=== PATIENT | male | born 1940 | race Caucasian/White ===

== ENCOUNTER → 2017-01-07 | Outpatient (CLI) | payer OTHER ==
[~2017-01-07] VITALS: Ht 180.3 cm; Wt 87.1 kg
[~2017-01-07] MED LIST: ALENDRONATE SOD70 MG PO; CHOLESTYRAMINE P4 GM PO; HALOPERIDOL 2 MG2 MG PO; LISINOPRIL20 MG PO; MULTIVITAMINS1 EAC7 PO; PRILOSEC 20 MG20 MG PO; ZOLOFT50 MG PO
--- NOTE | ~2017-01-07 | S ---
[facility] [place] [address] SURGICAL PATH RPT PROCEDURE Name: WESLEY ANDRADE Room #: REG [facility].#: [id number] Admission: 01/07/17 Date of : 36 Discharge: Report #: [id number] Path Case #: [id number] PATHOLOGY REPORT COLLECTION DATE: 01/07/2017 RECEIVED DATE: 01/07/2017 SUBMITTING PHYS: Dr. Robson Glynn OTHER PHYS: Dr. Hubert Owusu SPECIMEN(S) RECEIVED: A.Proximal ascending colon polyp B.Hepatic flexure colon polyp C.Polyp at 50cm polyp * * * * * * * * * * * * FINAL DIAGNOSIS: A. Colon, proximal ascending, biopsy: - Adenomatous polyp. B. Colon, hepatic flexure, biopsy: - Adenomatous polyp. C. Colon, 50 cm, biopsy: - Adenomatous polyp. (SKM:zenaida; 01/11/2017) PATHOLOGIST: Chris Zabala M.D. REPORT ELECTRONICALLY SIGNED BY: Chris Zabala M.D. DATE/TIME: 01/11/2017 15:38 * * * * * * * * * * * * GROSS PATHOLOGY: A. Received in formalin labeled "Wesley Andrade, polyp at proximal ascending colon," is a segment of martin soft tissue measuring 0.5 x 0.3 x 0.2 cm in maximum dimension. The specimen is submitted entirely in cassette A1. B. Received in formalin labeled "Wesley Andrade, polyp at hepatic flexure colon," is a 0.9 x 0.9 x 0.7 cm polypoid piece of martin soft tissue. The margin is inked and the tissue is sectioned perpendicular to the margin and submitted in its entirety in cassette B1. C. Received in formalin labeled "Wesley Andrade, polyp at 50 cm," is a segment of martin soft tissue measuring 0.5 x 0.3 x 0.3 cm in maximum dimension. The specimen is submitted entirely in cassette C1. (JAIMEE; 01/08/2017) CLINICAL HISTORY: [address] [address] SURGICAL PATH RPT PROCEDURE Name: WESLEY ANDRADE Room #: [facility] BREANN Mishra#: [id number] Admission: 01/07/17 Date of : 36 Discharge: Report #: [id number] Path Case #: [id number] History of polyps INITIAL CPT CODE(S): A; 46011 B; 14813 C; 30696 Professional services performed by [facility] at [address] , [place] [address] Technical services performed by [facility] at [address] [place] [address], [facility] [address] [address]. [facility] [address] [address] PHONE: [phone] DIRECTOR: Christiano Walker M.D. * * * END OF REPORT * * *
== END | disposition home or self-care (01) ==
LOC: GI 01-04 10:03
DX: Z09 Encounter for follow-up examination after completed treatment for conditions other than malignant neoplasm (principal); D12.3 Benign neoplasm of transverse colon; D12.2 Benign neoplasm of ascending colon; D12.4 Benign neoplasm of descending colon; K57.30 Diverticulosis of large intestine without perforation or abscess without bleeding; K55.20 Angiodysplasia of colon without hemorrhage; I10 Essential (primary) hypertension; J43.9 Emphysema, unspecified; M19.90 Unspecified osteoarthritis, unspecified site; M10.9 Gout, unspecified; F32.89 Other specified depressive episodes; F41.8 Other specified anxiety disorders; Z87.891 Personal history of nicotine dependence; Z87.442 Personal history of urinary calculi; Z85.46 Personal history of malignant neoplasm of prostate; Z90.49 Acquired absence of other specified parts of digestive tract; Z98.41 Cataract extraction status, right eye; Z98.42 Cataract extraction status, left eye; Z96.1 Presence of intraocular lens; Z98.890 Other specified postprocedural states; Z79.899 Other long term (current) drug therapy
CPT/HCPCS: 62110; 62900

== ENCOUNTER 2017-10-04 12:51 | Emergency (ER) | payer OTHER ==
[~2017-10-04] VITALS: Ht 180.3 cm; Wt 90.7 kg
[2017-10-04] MEDS ORDERED: ULTRAM 50MG TAB50 MG PO (16:09)
== END 2017-10-04 16:23 | disposition home or self-care (01) ==
LOC: ER 12:51
DX: S52.181A Other fracture of upper end of right radius, initial encounter for closed fracture (principal); S00.83XA Contusion of other part of head, initial encounter; I10 Essential (primary) hypertension; M19.90 Unspecified osteoarthritis, unspecified site; F32.9 Major depressive disorder, single episode, unspecified; Z87.442 Personal history of urinary calculi; Z85.46 Personal history of malignant neoplasm of prostate; Z87.891 Personal history of nicotine dependence; W18.39XA Other fall on same level, initial encounter; Y93.89 Activity, other specified; Y92.89 Other specified places as the place of occurrence of the external cause; Y99.8 Other external cause status

== ENCOUNTER 2017-10-18 05:50 | Day surgery (SDC) | payer OTHER ==
[~2017-10-18] VITALS: Ht 180.3 cm; Wt 85.7 kg
--- NOTE | ~2017-10-18 | O ---
[facility] [place] [address] OPERATIVE REPORT Name: ORIANA ANDRADE Room #: 150-3 [facility]#: [id number] Admission: 10/18/17 Attend Phys: Gabi Gomez, Discharge: Date of : 38 Report #: [id number] THIS REPORT FOR: //name// CC: Hubert Gomez DATE OF SERVICE: 10/18/2017 PREOPERATIVE DIAGNOSES: 1. Right distal radius fracture, intra-articular. 2. Right ulnar styloid avulsion fracture. POSTOPERATIVE DIAGNOSES: 1. Right distal radius fracture, intra-articular. 2. Right ulnar styloid avulsion fracture. PROCEDURES PERFORMED: 1. Open reduction and internal fixation of right intra-articular distal radius fracture. 2. right ulnar styloid avulsion fracture. SURGEON: Gabi Gomez MD ANESTHESIA: General mask anesthesia. ESTIMATED BLOOD LOSS: 1 mL TOURNIQUET TIME: 76 minutes. COMPLICATIONS: None. CONDITION: Stable. DISPOSITION: To recovery room. IMPLANTS USED: Skeletal dynamics GEMINUS volar distal radius plate. INDICATIONS: The patient is a 77-year-old male with the above mentioned diagnosis. He elects for operative treatment. The risks, benefits, alternatives and complications were discussed including, but not limited to infection, damage to vessels or nerves, nonunion, minor, hard failure, hardware irritation, stiffness. Informed consent was obtained. The correct extremity was identified and labeled by myself after verbal confirmation of the patient as well as visual confirmation and signed informed consent. DESCRIPTION OF PROCEDURE: The patient was brought back to the operating room [facility] [address] [place] [address] OPERATIVE REPORT Name: ORIANA ANDRADE Room #: 150-3 [facility].#: [id number] Admission: 10/18/17 Attend Phys: Gabi Gomez, Discharge: Date of : 38 Report #: [id number] and placed on the operating room table in supine position. He received preoperative antibiotics. Tourniquet was placed over padding on the patient's right upper extremity. Right upper extremity was sterilely prepped and draped in the usual fashion. A final timeout was taken to verify correct patient, operative procedure, operative site, all concurred. The arm was elevated, exsanguinated and tourniquet inflated. Next, a volar approach was taken to the distal radius with an 8 cm incision made over the FCR tendon. Dissection was carried down through subcutaneous tissues with tenotomy scissors. The sheath was identified and incised. The subsheath was incised as well. The volar contents were retracted ulnarly. The radial aspect of the pronator quadratus was incised and the pronator quadratus was elevated from the volar aspect of the distal radius. The fracture site was evaluated. There was a significant amount of callus formation that was soft. This was all debrided. A elevator was used to free up the fracture fragments and then, I was able to reduce them nicely and wide skeletal dynamics GEMINUS plate was applied to the bone. Initially, a standard one was placed, but it was not wide enough, so wide one was applied to the bone was checked under fluoroscopy in both AP and lateral planes and I felt I was going to be able to provide a stable construct with this plate. It was then affixed to the bone with a cortical screw in the gliding hole. It was repositioned a few times and using a reduction clamp, the ulnar K-wire was placed through the drill to the ulnar phalange of the plate. Next, the radial K-wire was placed. This was checked under fluoroscopy in both AP, lateral and then lateral tilt views as well as live views. The fracture was felt to be well aligned and the plate was felt to be in the appropriate position. Next, the distal holes were drilled, measured and appropriate screws were placed. Careful attention placed to avoiding dorsal penetration with the screw. Next, the wires were removed and these holes were drilled, measured and the appropriate size screws were placed. Careful attention was placed to assessing for intra-articular screw penetration during measuring as well as screw placement. Next, the hole was drilled for the guide and the guide was removed and then the screw was placed. These were all locking screws. Next, the proximal locking holes were drilled, measured. A locking screw was placed proximally and then the gliding hole screw was placed into the distal most shaft screw and a small 13 mm screw was placed in the gliding hole. This was felt to provide better screw length for the plate and proximal locking screw was then applied. These screws were all tightened appropriately. Fluoroscopy was brought in multiple times throughout the proximal screw placement. AP and lateral tilt views also good position of the fracture and hardware. The wound was thoroughly irrigated. The pronator quadratus was loosely reapproximated with 4-0 Vicryl suture. The skin was closed with 4-0 nylon suture. The wound was infiltrated with approximately 5 mL of 0.25% Marcaine. The wound was dressed with Adaptic and sterile gauze. The DRUJ was assessed. It was stable in all planes to rotation. He was placed into a volar slab splint. All fingers were pink with brisk capillary refill at the completion of the case. After [facility] [address] [place] [address] OPERATIVE REPORT Name: ORIANA ANDRADE Room #: 150-3 [facility] M.R.#: [id number] Admission: 10/18/17 Attend Phys: Gabi Gomez, Discharge: Date of : 38 Report #: [id number] deflation of the tourniquet and after application of the splint off and sponge and needle counts were correct, the patient transferred postoperative condition. By: 1738 24 Gabi Gomez MD /nt
--- NOTE | ~2017-10-18 | EKG ---
[address] [address] ELECTROCARDIOGRAM REPORT Name: ORIANA ANDRADE Room #: 150-[address] [place] [address]#: [id number] Admission: 10/18/17 Attend Phys: Gabi Gomez, Discharge: Date of : 38 Report #: [id number] THIS REPORT FOR: //name// [facility] Test Date: 2017-10-18 Test Time: 13:33:10 Pat Name: ORIANA ANDRADE Department: Room: 150 3 Gender: M [employer] Supervisor: TEENA : 1940 Requested By: Melvin Russell Order Number: [id number] MD: Azam Curry Measurements Intervals Esparto Rate: 81 P: 55 GA: 194 QRS: 23 QRSD: 92 T: 51 QT: 387 QTc: 450 Interpretive Statements Sinus arrhythmia RSR' in V1 or V2, right ventricular conduction delay Abnormal inferior Q waves No previous ECG available for comparison Electronically Signed On 10-18-2017 17:07:02 CDT by Azam Curry [email or web address] <ELECTRONICALLY SIGNED> By: Azam Curry MD, [facility] 10/18/17 1707 1333 32 Azam Curry MD, [facility] /EPI
[~2017-10-18 05:50] MED LIST changes: +CENTRUM SILVER1 EAC4 PO; +IBUPROFEN 200200 M1 PO; +ULTRAM 50MG TAB50 MG PO
[2017-10-18 14:00] VITALS: BP 136/86
[2017-10-18 18:51] VITALS: BP 170/73
[2017-10-18 21:22] VITALS: BP 185/69
[2017-10-18 23:25] VITALS: BP 164/63
[2017-10-19 03:44] VITALS: BP 146/59
[2017-10-19 07:24] VITALS: BP 130/63
[2017-10-19 11:21] VITALS: BP 130/63
[2017-10-19 12:17] VITALS: BP 130/63
== END 2017-10-19 12:58 | disposition home or self-care (01) ==
LOC: OR 05:50 → TBA 05:50 → OR 14:08 → 4E 20:41 → ENTRNSPT 10-19 12:42 → EDTRNSPTSTS 10-19 12:45 → OR 10-19 12:58
DX: S52.571A Other intraarticular fracture of lower end of right radius, initial encounter for closed fracture (principal); S52.611A Displaced fracture of right ulna styloid process, initial encounter for closed fracture; X58.XXXA Exposure to other specified factors, initial encounter; Y93.9 Activity, unspecified; Y92.89 Other specified places as the place of occurrence of the external cause; Y99.9 Unspecified external cause status; M19.90 Unspecified osteoarthritis, unspecified site; F32.9 Major depressive disorder, single episode, unspecified; Z79.899 Other long term (current) drug therapy

== ENCOUNTER → 2020-01-11 | Outpatient (CLI) | payer OTHER ==
[~2020-01-11] VITALS: Ht 180.3 cm; Wt 86.2 kg
[~2020-01-11] MED LIST changes: +FLOMAX0.4 MG PO; +LIPITOR40 MG PO; +METAMUCIL1 EAC1 PO; +NORVASC5 M1 PO; +VITAMIN D325 MC3 PO; +ZOLOFT50 M1 PO
--- NOTE | 2020-01-11 10:32 | P ---
[facility] [place] [address] PROCEDURE REPORT Name: ORIANA ANDRADE Room #: REG [facility]#: [id number] Admission: 01/11/20 Attend Phys: Robson Glynn MD Discharge: Date of : 38 Report #: [id number] THIS REPORT FOR: cc: Gabriel Sofia MD, Austin T. MD Thesing,Robson Abdalla MD ~ CC: Gabriel Glynn DATE OF SERVICE: 01/11/2020 BRIEF HISTORY: The patient is an 80-year-old male with history of multiple colon polyps for high risk screening colonoscopy. He also reports that his mother had numerous polyps. He is not certain whether she did or did not have colon cancer. PREOPERATIVE DIAGNOSIS: High risk screening colonoscopy. POSTOPERATIVE DIAGNOSES: 1. Multiple colon polyps. 2. Moderate sigmoid diverticulosis. 3. Radiation proctitis. 4. Small internal hemorrhoids. 5. Nonbleeding arteriovenous malformation, proximal colon. MEDICATIONS: Deep sedation with propofol per Anesthesia. SPECIMENS: 1. Polyp from 50 cm. 2. Polyp from 30 cm. 3. Polyp from 25 cm. 4. Rectal polyp. ESTIMATED BLOOD LOSS: 3 mL. PROCEDURE: Colonoscopy to cecum and terminal ileum with snare polypectomy and biopsy. FINDINGS: Prior to propofol sedation, procedure of colonoscopy was discussed with the patient as well as potential risks and its complications. He indicates he understands and desires to proceed. DESCRIPTION OF PROCEDURE: With the patient in left lateral decubitus position, digital examination was completed, which revealed no abnormalities. Subsequently, the Olympus video colonoscope was introduced into the rectum, [facility] [address] [place] [address] PROCEDURE REPORT Name: ORIANA ANDRADE Room #: REG [facility]#: [id number] Admission: 01/11/20 Attend Phys: Robson Glynn MD Discharge: Date of : 38 Report #: [id number] advanced under direct vision to the cecum. This was done with minimal difficulty. The cecum was identified by the ileocecal valve and the appendiceal orifice. I was able to visualize the distal segment of terminal ileum, which was inspected and noted to be unremarkable. At that point, the scope was slowly withdrawn and careful circumferential views were obtained. Upon slow withdrawal of the scope, the prep was excellent. The mucosa was within normal limits, normal vascular pattern, and normal light reflex. As we withdrew the scope, there was noted to be 2 nonbleeding AVMs in the proximal colon. The patient has not had problems with anemia or GI bleeding as best I know. Therefore, he may not benefit from potential risk of treating this lesion. Therefore, the lesion was not treated. There were no signs of bleeding. As we withdrew the scope, no abnormalities were noted until the left colon was reached and at 50 cm, a diminutive polyp was seen and removed with biopsy forceps. Another one was removed with biopsy forceps at 30 cm. At 25 cm, there was a diminutive polyp on the edge of a diverticulum. This is likely an inflammatory polyp, was removed with biopsy forceps as well. The patient was noted to have moderately severe diverticular disease without endoscopic evidence of diverticulitis. The scope was withdrawn in the rectum. In the proximal rectum, no abnormalities were seen. However, in the distal rectum, he was noted to have a 5 mm fairly bulky sessile polyp, removed with cold snare polypectomy. In addition, there were noted to be a few punctate AVMs in the distal rectum. Again, the patient did have radiation therapy for prostate cancer. However, he has never had rectal bleeding or anemia problems. Therefore, these few lesions were not treated. If bleeding should develop, treatment of his radiation proctitis with Argon plasma coagulation may be a consideration. I attempted to retroflex the scope in the rectum. However, it was fairly rigid likely result of his radiation therapy and I could not retroflex the scope. The scope was carefully withdrawn through the anal canal and no additional abnormalities were seen. Scope was withdrawn. The patient tolerated the procedure well. CONDITION OF THE PATIENT UPON DISCHARGE: Following procedure, the patient was drowsy, aroused, conversant and will be discharged to home when fully ambulatory. INSTRUCTIONS TO THE PATIENT AND FAMILY AT THE TIME OF DISCHARGE: We will follow up on the path and make further recommendations. The patient is 80 years old at this time. If 3 or more of these lesions are adenomas, we would give consideration to repeating a colonoscopy in 3 years as long as his health is good at that time. However, if 2 or few of the polyps are adenomatous, he is not likely to gain much benefit from continued routine surveillance examination. He will return to the care of Dr. Gabriel Sofia and return to see me as needed. [address] [address] PROCEDURE REPORT Name: ORIANA ANDRADE Room #: REG [facility] Mishra#: [id number] Admission: 01/11/20 Attend Phys: Robson Glynn MD Discharge: Date of : 38 Report #: [id number] Last colonoscopy was 3 years ago. Withdrawal time from the cecum was 16 minutes 42 seconds. <ELECTRONICALLY SIGNED> By: Robson Glynn MD 01/11/20 1032 0936 1001 Robson Glynn MD /nt
--- NOTE | 2020-01-15 18:06 | PATH ---
[facility] [place] [address] [address] PATHOLOGY RPT PROCEDURE Name: WESLEY ANDRADE Room #: REG [facility]..#: [id number] Admission: 01/11/20 Date of : 38 Discharge: Report #: [id number] Path Case #: [id number] [facility] Accession Number: [id number] . 01 Material submitted: . PART A: colon - POLYP AT 50CM PART B: colon - POLYP AT 30CM PART C: colon - POLYP AT 25CM PART D: rectum - POLYP AT RECTUM . 01 Clinical history: . HX polyps . 02 Diagnosis: A. Polyp, at 50 cm, endoscopic biopsy: - Tubular adenoma. - Negative for high-grade dysplasia. . B. Polyp, at 30 cm, endoscopic biopsy: - Tubular adenoma. - Negative for high-grade dysplasia. . C. Polyp, at 25 cm, endoscopic biopsy: - Polypoid fragment of granulation tissue only. - No viable intact epithelium or mucosal fragment present. See comment. . D. Polyp, at rectum, endoscopic biopsy: - Hyperplastic polyp. - Negative for dysplasia. (IUV:ciro; 01/15/2020) QMS 01/15/2020 1328 Local . 02 Comment: C. Examination shows a polypoid fragment comprised primarily of surface ulceration as well as granulation tissue. There is no intact mucosa present. Findings may be suggestive of ischemic colitis, ulceration in a background of infectious-type of colitis, diverticulitis, as well as medication induced colotis. Please correlate clinically. (IUV:ciro; 01/15/2020) . 02 Electronically signed: . Jessica Pinzon MD, Pathologist NPI- [id number] . 01 Gross description: . A. The specimen is received in formalin, labeled "Wesley Andrade, polyp at 50 cm" and consists of 2 fragments of martin tissue measuring 0.3 x 0.2 [place] [address] PATHOLOGY RPT PROCEDURE Name: WESLEY ANDRADE Room #: [facility]#: [id number] Admission: 01/11/20 Date of : 38 Discharge: Report #: [id number] Path Case #: [id number] and 0.7 x 0.2 cm which are entirely submitted in A1. . B. The specimen is received in formalin, labeled "Wesley Andrade, polyp at 30 cm" and consists of a fragment of martin tissue measuring 0.6 x 0.2 cm which is entirely submitted in A1. . C. The specimen is received in formalin, labeled "Heri, Wesley, polyp at 25 cm" and consists of 2 fragments of martin tissue measuring 0.3 x 0.3 cm and 0.4 x 0.3 cm which are entirely submitted in C1. . D. The specimen is received in formalin, labeled "Heri, Wesley, polyp at rectum" and consists of 3 fragments of martin tissue measuring between 0.1 x 0.1 cm and 0.5 x 0.5 cm which are entirely submitted in D1. (SDY; 01/12/2020) SYU/SYU 01/12/2020 1051 Local . 02 Pathologist provided ICD-10: D12.6, K62.1, K63.3, Z86.010 . 02 CPT . 763254, 504536, 480437, 361217 Specimen Comment: A courtesy copy of this report has been sent to [phone], [phone] Specimen Comment: [phone] Specimen Comment: Report sent to / DR CHRISTIANSON Performed at: [address] [facility], [place], [place] [id number] MD Dieudonne Barrera MD Phone: [phone] Performed at: [address] [id number] MD Jessica Pinzon MD Phone: [phone]
== END | disposition home or self-care (01) ==
LOC: GI 07:26
PROVIDERS: ATTEND Specialist
DX: Z12.11 Encounter for screening for malignant neoplasm of colon (principal); Z86.010 Personal history of colon polyps; D12.5 Benign neoplasm of sigmoid colon; K62.7 Radiation proctitis; K62.1 Rectal polyp; K55.20 Angiodysplasia of colon without hemorrhage; K63.3 Ulcer of intestine; K57.30 Diverticulosis of large intestine without perforation or abscess without bleeding; K64.8 Other hemorrhoids; I10 Essential (primary) hypertension; E78.5 Hyperlipidemia, unspecified; N40.0 Benign prostatic hyperplasia without lower urinary tract symptoms; M19.90 Unspecified osteoarthritis, unspecified site; F32.9 Major depressive disorder, single episode, unspecified; Z11.59 Encounter for screening for other viral diseases; Z98.890 Other specified postprocedural states; Z79.899 Other long term (current) drug therapy; Z87.442 Personal history of urinary calculi; Z87.891 Personal history of nicotine dependence; Z85.3 Personal history of malignant neoplasm of breast; Z90.49 Acquired absence of other specified parts of digestive tract; Z98.41 Cataract extraction status, right eye; Z98.42 Cataract extraction status, left eye; Z98.52 Vasectomy status
CPT/HCPCS: 62110; 62900